=== PATIENT | female | born 1955 | race Caucasian/White ===

== ENCOUNTER → 2017-02-15 | Outpatient (CLI) | payer OTHER ==
[~2017-02-15] MED LIST: ALBUAER2 INH; B-COTAB18 PO; CHOL100010 PO; CYAN10005 PO; CYCL10TA6 PO; DIPH25CA5 PO; MULT-506 PO; PANT40TA PO; SUMA100T16 PO; TRAM-10 PO; [UNRECOGNIZED DRUG - OTHER] PO
[2017-02-15 14:18] LABS: BLOOD UREA NITROGEN 19 mg/dl (7-18); CREATININE 0.75 mg/dl (0.60-1.20)
== END | disposition home or self-care (01) ==
LOC: C.LABBC 12:03
PROVIDERS: ATTEND Psychiatry & Neurology Neurology
DX: Z00.00 Encounter for general adult medical examination without abnormal findings (principal); M48.02 Spinal stenosis, cervical region; M54.12 Radiculopathy, cervical region

== ENCOUNTER → 2017-02-20 | Outpatient (CLI) | payer OTHER ==
[~2017-02-20] MED LIST changes: +GADAVIST IV PRN
--- NOTE | 2017-02-20 09:37 | DIAGNOSTIC IMAGING REPORT ---
MRI OF THE CERVICAL SPINE WITH AND WITHOUT CONTRAST CLINICAL HISTORY: Severe neck pain. Cervical spine stenosis with radiculopathy. COMPARISON: MRI of the cervical spine April 07, 2016. TECHNIQUE: Utilizing a 1.5 Josee magnet and dedicated coil, multiplanar, multiecho imaging of the cervical spine was performed before and after intravenous administration of 8.5 of Gadavist. FINDINGS: There is reversal of the normal cervical lordosis. Cervical cord signal and caliber are normal. T1 and T2 hyperintense lesions within the T1 and T2 vertebra represent hemangiomas. These are unchanged since MRI of April 07, 2016. There is no suspicious marrow replacement. 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 Several thyroid nodules are noted. Paravertebral soft tissues are unremarkable. C2-C3: The central canal and left neural foramen are patent. There is moderate narrowing of the right neural foramen due to facet arthrosis. C3-C4: The central canal is patent. There is mild narrowing of the left neural foramen. C4-C5: Central canal is patent. There is moderate narrowing of both neural foramen due to facet arthrosis and uncovertebral hypertrophy. There are perineural cyst. C5-C6: Posterior disc osteophyte complex results in mild narrowing of the left aspect of the canal. There is mild narrowing of both neural foramen. C6-C7: Posterior disc osteophyte complex results in moderate narrowing of the left aspect of the canal. This is unchanged. There is severe narrowing of the left neural foramen and mild narrowing of the right neural foramen. C7-T1: Central canal and neural foramen are patent. IMPRESSION: 1. Moderate narrowing of the left aspect of the central canal at C6-C7 due to posterior disc osteophyte complex with mild central canal stenosis at C5-C6. Findings similar to MRI of April 07, 2016. 2. Multilevel neural foraminal stenosis, most pronounced at C6-C7. 3. Normal cervical cord signal and caliber. Electronically signed by: Bhavik Arriaga M.D. 02/20/2017 9:36 AM Dictated Date/Time: 02/20/2017 9:19 AM
== END | disposition home or self-care (01) ==
LOC: C.MRIBC 08:02
PROVIDERS: ATTEND Psychiatry & Neurology Neurology
DX: M48.02 Spinal stenosis, cervical region (principal); M54.12 Radiculopathy, cervical region; M25.78 Osteophyte, vertebrae

== ENCOUNTER → 2017-02-27 | Outpatient (CLI) | payer OTHER ==
[~2017-02-27] MED LIST changes: +BND25 PO; -DIPH25CA5 PO; -GADAVIST IV PRN
--- NOTE | 2017-02-27 10:20 | DIAGNOSTIC IMAGING REPORT ---
THYROID ULTRASONOGRAPHY CLINICAL HISTORY: THYROID NODULE COMPARISON STUDY: 02/08/2017 FINDINGS: Both lobes of thyroid are markedly heterogeneous in echotexture. Both lobes consistent of coalescent nodules. No single discrete architecturally suspicious nodule is visualized. IMPRESSION: Relatively stable multinodular thyroid goiter. No discrete suspicious thyroid masses evident. Electronically signed by: Juvenal Lucero M.D. 02/27/2017 10:19 AM Dictated Date/Time: 02/27/2017 10:17 AM
[2017-02-27 11:26] LABS: BASO % 0.2 %; BASO ABS # 0.02 K/uL (0-0.2); COMPLETE YES; HEMATOCRIT 42.2 % (37-47); IG% 0.2 %; LYMPH % 19.6 %; LYMPH ABS # 1.74 K/uL (1.2-3.4); MEAN CELL VOLUME 90.2 fL (80-100); MEAN CORPUSCULAR HEMOGLOBIN 30.8 pg (25-34); MEAN CORPUSCULAR HGB CONC 34.1 g/dl (32-36); MEAN PLATELET VOLUME 11.4 fL (7.4-10.4); MONO % 7.6 %; NEUT % 70.4 %; PLATELET COUNT 186 K/uL (130-400); RED BLOOD COUNT 4.68 M/uL (4.2-5.4); WHITE BLOOD COUNT 8.87 K/uL (4.8-10.8)
[2017-02-27 11:40] LABS: URINE APPEARANCE CLEAR (CLEAR); URINE BILIRUBIN NEG (NEG); URINE COLOR DK YELLOW; URINE NITRITE NEG (NEG); UROBILINOGEN NEG (NEG); ZZUR CULT IF INDIC CLEAN CATCH NO
[2017-02-27 11:46] LABS: MANUAL MICROSCOPIC REQUIRED? NO; REVIEW REQ? NO
[2017-02-27 12:28] LABS: BLOOD UREA NITROGEN 13 mg/dl (7-18); CREATININE 0.81 mg/dl (0.60-1.20); GLUCOSE 112 mg/dl (70-99)
[2017-02-27 12:29] LABS: ALT/SGPT 47 U/L (12-78); AST/SGOT 31 U/L (15-37); BUN/CREATININE RATIO 16.4 (10-20); CALCIUM 9.2 mg/dl (8.5-10.1); CARBON DIOXIDE 24 mmol/L (21-32); CHLORIDE 105 mmol/L (98-107); POTASSIUM 4.1 mmol/L (3.5-5.1); SODIUM 140 mmol/L (136-145)
[2017-02-27 12:40] LABS: ALB/GLOB RATIO 0.9 (0.9-2); ALKALINE PHOSPHATASE 114 U/L (45-117); CHOLESTEROL 137 mg/dl (0-200); CHOLESTEROL/HDL RATIO 3.4; HDL CHOLESTEROL 40 mg/dl; LDL CHOLESTEROL CALCULATED 60 mg/dl; TRIGLYCERIDES 183 mg/dl (0-150); VERY LOW DENSITY LIPOPROT CALC 37 mg/dl
== END | disposition home or self-care (01) ==
LOC: C.ULTRBC 07:55
PROVIDERS: ATTEND Internal Medicine
DX: C54.1 Malignant neoplasm of endometrium (principal); E55.9 Vitamin D deficiency, unspecified; E53.8 Deficiency of other specified B group vitamins; Z13.6 Encounter for screening for cardiovascular disorders; E04.2 Nontoxic multinodular goiter

== ENCOUNTER → 2017-03-07 | Outpatient (CLI) | payer OTHER ==
[~2017-03-07] MED LIST changes: +GADAVIST IV PRN
--- NOTE | 2017-03-07 11:00 | DIAGNOSTIC IMAGING REPORT ---
THORACIC SPINE MRI WITH AND WITHOUT CONTRAST HISTORY: Lesion D18.09 Hemangioma of spine TECHNIQUE: Multiplanar multisequence MRI of the thoracic spine was performed both before and after the intravenous administration of contrast. COMPARISON: MRI thoracic spine 611 radiology dated 04/07/2016 FINDINGS: Small benign bone marrow hemangioma is of the T11 and T9 vertebral bodies. Degenerative disc changes noted throughout the entire thoracic region. No abnormal postcontrast enhancement. The area of heterogeneous signal posterior aspect T1 is unchanged. This suggestive of a hemangioma. Additional meningiomas are again as noted. Metastatic lesions are less likely given the general stability noted. No evidence for abnormal postcontrast cord enhancement.. Transaxial images throughout the entire thoracic region demonstrate bulging discs at T8-T9 and T9-T10. These are unchanged in the prior study. Major disc herniation or significant component of spinal stenosis is not appreciated. IMPRESSION: 1. Several lesions within the thoracic spine unchanged from the prior study had 6 radiology. 2. These is suggestive of benign nonaggressive hemangiomas. 3. No evidence for new interval or progressive process. 4. Several bulging disc unchanged from the prior study. Electronically signed by: Blake Curiel M.D. 03/07/2017 10:59 AM Dictated Date/Time: 03/07/2017 10:51 AM
== END | disposition home or self-care (01) ==
LOC: C.MRIBC 07:58
PROVIDERS: ATTEND Internal Medicine
DX: D18.09 Hemangioma of other sites (principal)

== ENCOUNTER → 2017-03-16 | Outpatient (CLI) | payer OTHER ==
[~2017-03-16] MED LIST changes: -GADAVIST IV PRN
[2017-03-16 12:32] LABS: THYROID STIMULATING HORMONE 3.63 uIu/ml (0.300-4.500)
[2017-03-16 12:33] LABS: ESTIMATED AVERAGE GLUCOSE 126 mg/dl; HA1C FLAG Normal (Normal)
== END | disposition home or self-care (01) ==
LOC: C.LABBFT 09:16
PROVIDERS: ATTEND Internal Medicine
DX: R73.09 Other abnormal glucose (principal); E04.1 Nontoxic single thyroid nodule

== ENCOUNTER → 2017-06-26 | Outpatient (CLI) | payer OTHER ==
[~2017-06-26] MED LIST changes: -BND25 PO; +DIPH25CA5 PO
--- NOTE | 2017-06-26 10:52 | DIAGNOSTIC IMAGING REPORT ---
CT SCAN OF THE ABDOMEN AND PELVIS WITH IV CONTRAST CLINICAL HISTORY: Left lower quadrant abdominal pain. COMPARISON STUDY: Abdominal CT dated 11/15/2014. TECHNIQUE: Following the IV administration of 93 cc of Optiray 320, CT scan of the abdomen and pelvis is performed from the lung bases to the proximal femora. Images are reviewed in the axial, sagittal, and coronal planes. IV contrast was administered without complication. A dose lowering technique was utilized adhering to the principles of ALARA. CT DOSE: 901.19 mGy.cm FINDINGS: Lung bases: The heart is normal in size and without pericardial effusion. The coronary arteries are densely calcified. There is a tiny hiatal hernia. There is a 4 mm right lower lobe pulmonary nodule seen image #25. This is unchanged from 11/15/2014 and of doubtful significance. The lung bases are otherwise clear. Liver: The contrast-enhanced liver is normal in size, contour, and attenuation. There is no intrahepatic biliary ductal dilatation. The hepatic veins and portal veins are patent. Gallbladder: Calcified gallstones are observed. There is no CT evidence of cholecystitis. Spleen: Normal in size and attenuation. Pancreas: Mildly atrophic and grossly unremarkable. Adrenal glands: Unremarkable. Kidneys: The contrast enhanced kidneys demonstrate mild cortical atrophy and are without hydronephrosis. The kidneys enhance symmetrically. Scattered subcentimeter cortical hypodensities likely represent cysts but are too small for definitive characterization P are Abdominal vasculature: The abdominal aorta is normal in course and caliber noting scattered foci of atherosclerotic calcification. Bowel: There is mild colonic diverticulosis without CT evidence of acute diverticulitis. There is underdistention versus minimal wall thickening of the descending colon. No bowel obstruction is seen. The appendix is well-visualized and normal. Peritoneum: There is no intraperitoneal free air or abdominal ascites. There is a tiny fat-containing umbilical hernia. Lymphadenopathy: None. Pelvic viscera: A 3.4 cm ovoid cystic structure in the central pelvis is nonspecific and unchanged from 2015 and may represent an inclusion cyst. The bladder is normal in appearance. The uterus is surgically absent. No adnexal lesion is seen. Skeletal structures: The skeletal structures are osteopenic. There is mild lumbosacral spondylosis. No lytic or blastic lesions are seen. IMPRESSION: 1. There is underdistention versus minimal wall thickening of the descending colon. There is no pericolonic inflammation and underdistention is favored. Correlate clinically for evidence of a mild colitis. 2. There is mild colonic diverticulosis without CT evidence of acute diverticulitis. 3. Cholelithiasis. 4. Additional findings as above. Electronically signed by: Leonardo Perdomo M.D. 06/26/2017 10:51 AM Dictated Date/Time: 06/26/2017 10:43 AM
== END | disposition home or self-care (01) ==
LOC: C.CTS 08:14
PROVIDERS: ATTEND Internal Medicine
DX: R10.32 Left lower quadrant pain (principal)

== ENCOUNTER → 2017-10-24 | Outpatient (CLI) | payer OTHER ==
[~2017-10-24] MED LIST changes: -ALBUAER2 INH; +ARTIOIN6 OP; -CHOL100010 PO; -CYAN10005 PO; -DIPH25CA5 PO; +FEXO5TAB2 PO; +LOSA50TA6 PO; +MONT1TAB3 PO; +VNTHFA/IN INH; +VTMD1000 PO; +[UNRECOGNIZED DRUG - CODE] PO; -[UNRECOGNIZED DRUG - OTHER] PO
== END | disposition home or self-care (01) ==
LOC: C.RDSM 09:46
PROVIDERS: ATTEND Orthopaedic Surgery Sports Medicine
DX: M25.561 Pain in right knee (principal)

== ENCOUNTER → 2017-11-28 | Outpatient (CLI) | payer OTHER | END | disposition home or self-care (01) | LOC: C.LAB 10:47 | PROVIDERS: ATTEND Internal Medicine | DX: E55.9 Vitamin D deficiency, unspecified (principal); R94.6 Abnormal results of thyroid function studies; R73.03 Prediabetes ==